=== PATIENT | female | born 1995 | race Caucasian/White ===

== ENCOUNTER 2018-11-04 01:36 | Day surgery (SDC) | payer OTHER ==
[~2018-11-04] VITALS: Ht 160 cm; Wt 57.6 kg
[~2018-11-04 01:36] MED LIST: ACET500T68 PO; CIPR-344 PO; HYDR-385 PO; HYDR-653 PO; IBUP800T37 PO; METR-1 PO; NORE0.3529 PO; ONDA4TAB PO
[2018-11-04] MEDS ORDERED: ceFAZolin(*) 1 GM VIAL 1 GM in NS(*) 0.9% 100 ML MINI-BAG 100 ML IVPB ONE (05:15)
[2018-11-04 07:50] VITALS: BP 116/77
[2018-11-04] MEDS ORDERED: MIDAZOLAM 2 MG/2 ML VIAL IVP PRN (08:10)
[2018-11-04] MEDS ORDERED: NORMOSOL R SOLN(*) 1000 ML BAG 1,000 ML IV PRN (08:10)
[2018-11-04] MEDS ORDERED: LIDOCAINE/SOD BICARB 8.4% SYR ID ONE (08:10)
[2018-11-04] MEDS ORDERED: FAMOTIDINE 20 MG TAB PO ONE (08:10)
[2018-11-04] MEDS ORDERED: fentaNYL CITR 100 MCG/2 ML AMP ONE (08:28)
[2018-11-04] MEDS ORDERED: LIDOCAINE MPF 1% 5 ML VIAL ONE (08:29)
[2018-11-04] MEDS ORDERED: PROPOFOL EMUL(*) 10MG/ML 20 ML 20 ML ONE (08:29)
[2018-11-04] MEDS ORDERED: DEXAMETHASONE SOD PHOS 10MG/ML ONE (09:21)
[2018-11-04] MEDS ORDERED: ONDANSETRON 4 MG/2 ML VIAL ONE (09:30)
[2018-11-04] MEDS ORDERED: AMOX500T10 PO (10:08)
[2018-11-04] MEDS ORDERED: OXYC-865 PO (10:08)
[2018-11-04] MEDS ORDERED: LIDO15SO2 PO (10:09)
[2018-11-04 10:26] VITALS: BP 124/95
[2018-11-04 11:09] VITALS: BP 121/72
[2018-11-04 11:13] VITALS: BP 120/76
--- NOTE | 2018-11-04 11:18 | OPERATIVE REPORT 1 ---
EVENT DATE: November 04, 2018 SURGEON: [place] MD ANESTHESIOLOGIST: Waldo Schmid MD ANESTHESIA: LMA. PROCEDURE PERFORMED Tonsillectomy. PREOPERATIVE DIAGNOSIS Recurrent acute tonsillitis. POSTOPERATIVE DIAGNOSIS Recurrent acute tonsillitis. INDICATIONS Please refer to the preoperative note. DESCRIPTION OF PROCEDURE The patient was positively identified in the preoperative area. She was accompanied there by her father. Risks and benefits were explained including, but not limited to, bleeding, infection and those associated with anesthesia. She acknowledged understanding of those risks. She was then brought back to the operating suite, laid supine on the operating table and anesthesia was administered. Once asleep, the patient was positioned and prepped and draped in the usual sterile fashion. A McIvor Mouth Gag was placed in the patient's oral cavity. Red rubber catheter was placed through the right nostril and utilized to suspend the soft palate. The patient was noted to have 3+ tonsils bilaterally. The right tonsil was grasped with curved Allis forceps and carefully dissected from the lateral pharyngeal wall with suction Bovie electrocautery. In a similar fashion, the contralateral tonsil was removed. Hemostasis was further obtained with suction Bovie electrocautery. The patient was then returned to Anesthesia for emergence. ESTIMATED BLOOD LOSS 25 cc. COMPLICATIONS No complications. MTDD
== END 2018-11-04 10:26 | disposition home or self-care (01) ==
LOC: OR 01:36
PROVIDERS: ATTEND Otolaryngology
DX: J03.91 Acute recurrent tonsillitis, unspecified (principal)
CPT/HCPCS: 42826; 81025; 88304; J0690; J1100; J2001; J2405; J2704; J3010